=== PATIENT | female | born 1980 | race African-American/Black ===

== ENCOUNTER 2023-06-30 09:00 | Emergency (ER) | payer OTHER ==
[~2023-06-30] VITALS: Ht 152.4 cm; Wt 88.5 kg
[2023-06-30 09:23] VITALS: BP 136/93
[2023-06-30] MEDS ORDERED: SUMA25 PO (09:31)
[2023-06-30] MEDS ORDERED: HYDCHL25 PO (09:39)
[2023-06-30] MEDS ORDERED: LOSA25 PO (09:40)
[2023-06-30] MEDS ORDERED: Robaxin750 MG PO (09:45)
[2023-06-30] MEDS ORDERED: METPRE4DP PO (09:45)
== END 2023-06-30 09:56 | disposition home or self-care (01) ==
LOC: ER 09:00
DX: S13.4XXA Sprain of ligaments of cervical spine, initial encounter (principal); I10 Essential (primary) hypertension; G43.909 Migraine, unspecified, not intractable, without status migrainosus; Z79.899 Other long term (current) drug therapy; X58.XXXA Exposure to other specified factors, initial encounter
CPT/HCPCS: 99283; A9270; J7512